=== PATIENT | female | born 1970 | race Caucasian/White ===

== ENCOUNTER 2018-11-13 11:17 | Emergency (ER) ==
[2018-11-13 11:24] VITALS: BP 129/88; TEMP 98; BMI 47.9
--- NOTE | 2018-11-13 13:17 | ED.PDOC ---
General ED Provider: Dr. SUMMER BROWN Chief Complaint: Psychiatric Complaint Stated Complaint: pt stated she heared some voiced no commanding issue with these voices shestated she can hear people talking in the background not to her but voices talking amongst themselves Time Seen by Physician: 11:30 (sen with ciarra) Mode of Arrival: Walk-In Information Source: Patient Exam Limitations: No limitations Nursing and Triage Documentation Reviewed and Agree: No Does patient meet sepsis criteria?: No System Inflammatory Response Syndrome: Not Applicable Sepsis Protocol: For patient's 13 years and over: Temp is 96.8 and below OR 101 and greater Pulse >90 BPM Resp >20/minute Acutely Altered Mental Status Are patient's symptoms suggestive of a new infection, such as: -Pneumonia -Skin, Soft Tissue -Endocarditis -UTI -Bone, Joint Infection -Implantable Device -Acute Abdominal Infection -Wound Infection -Meningitis -Blood Stream Catheter Infection -Unknown Psychological Complaint Exam - Psychiatric Complaint/Exam Patient Complains Of: Present: Other (hearing voices off her meds ). Absent: Depression, Suicidal thoughts, Suicidal gestures Onset/Duration: 1 week Symptoms Are: Still present Timing: Constant Episodes Lasting: Hours Initial Severity: Mild Current Severity: Mild Character: Absent: Manic, Depressed, Fearful, Anxious, Angry, Frustrated Aggravating: Reports: Medication noncompliance Associated Signs And Symptoms: Denies: Hostile, Confused, Hallucinating, Paranoid behavior, Sleep disturbance, Appetite change Related History: Denies: Suicidal thoughts, Suicidal plan, Suicidal gestures, Homicidal thoughts, Homicidal plan, Homicidal gestures, Prior attempts, Recent stressors, Drug ingestion Completed Suicide Risk Factors: None Patient Accompanied By: Family Social Withdrawal Present: No Social Isolation Present: No Prior Suicide Attempt: No Injury From Prior Suicide Attempt: No Related Surgical History: Reports: None Patient Uncooperative For Exam: No Mood: Present: Hearing voices Appearance: Present: Clean Thought Process: Present: Logical Insight: Present: Good Memory: Intact Judgement: Normal Danger To Others: No Patient Medically Stable For: Psych evaluation Differential Diagnoses: Acute Psychosis Review of Systems - Review Of Systems Constitutional: Reports: No symptoms Eyes: Reports: No symptoms Ears, Nose, Mouth, Throat: Reports: No symptoms Respiratory: Reports: No symptoms Cardiac: Reports: No symptoms GI: Reports: No symptoms : Reports: No symptoms Musculoskeletal: Reports: No symptoms Skin: Reports: No symptoms Neurological: Reports: Other (hearning voices in a distant no suicidal , homocidal plan or ideation) Endocrine: Reports: No symptoms Hematologic/Lymphatic: Reports: No symptoms All Other Systems: Reviewed and Negative Past Medical History - Past Medical History Previously Healthy: Yes Endocrine: Reports: None Cardiovascular: Reports: None Respiratory: Reports: None Hematological: Reports: None Gastrointestinal: Reports: None Genitourinary: Reports: None Neuro/Psych: Reports: Schizophrenia Musculoskeletal: Reports: None Cancer: Reports: None Last Menstrual Period: 1 WEEK AGO - Surgical History General Surgical History: Reports: None - Family History Family History: Reports: None - Social History Smoking Status: Never smoker Hx Substance Use: No Alcohol Screening: None Physical Exam - Physical Exam Appearance: Well-appearing, No pain distress, Well-nourished Eyes: DAVID, EOMI, Conjunctiva clear ENT: Ears normal, Nose normal, Oropharynx normal Respiratory: Airway patent, Breath sounds clear, Breath sounds equal, Respirations nonlabored Cardiovascular: RRR, Pulses normal, No rub, No murmur GI/: Soft, Nontender, No masses, Bowel sounds normal, No Organomegaly Musculoskeletal: Normal strength, ROM intact, No edema, No calf tenderness Skin: Warm, Dry, Normal color Neurological: Sensation intact, Motor intact, Reflexes intact, Cranial nerves intact, Alert, Oriented Psychiatric: Affect appropriate, Mood appropriate Interpretation - Winding Lathe Operator Rate: Normal Rhythm: Sinus Ectopy: None - EKG Interpretation Rate: Normal Rhythm: Sinus Salyer: NL Re-Evaluation - Re-Evaluation Time of Re-Evaluation: 12:00 Status: Unchanged Vital Signs Stable: Yes Pain Level: 0 Appearance: NAD Lungs: Clear Skin: Warm and Dry Neuro: Alert and Oriented X3 CV: RRR - Re-Evaluation Time of Re-Evaluation: 13:19 Status: Unchanged Vital Signs Stable: Yes Pain Level: 0 Appearance: NAD Skin: Warm and Dry Neuro: Alert and Oriented X3 CV: RRR Critical Care Note - Critical Care Note Total Time (mins): 0 Course - Course Hematology/Chemistry: 11/13/18 12:08 11/13/18 12:08 Orders, Labs, Meds: Lab Review 11/13/18 11/13/18 11/13/18 11:40 11:40 12:08 WBC 11.15 H RBC 4.79 Hgb 12.7 Hct 41.3 MCV 86.2 MCH 26.5 L MCHC 30.8 L RDW Coeff of Dianne 14.6 Plt Count 302 Immature Gran % (Auto) 0.3 Neut % (Auto) 73.6 Lymph % (Auto) 19.5 [place] % (Auto) 5.4 Eos % (Auto) 0.9 Baso % (Auto) 0.3 Immature Gran # (Auto) 0.0 Neut # (Auto) 8.2 H Lymph # (Auto) 2.2 [place] # (Auto) 0.6 Eos # (Auto) 0.1 Baso # (Auto) 0.0 Sodium Potassium Chloride Carbon Dioxide Anion Gap BUN Creatinine Estimated GFR (MDRD) BUN/Creatinine Ratio Glucose Calcium Total Bilirubin AST ALT Alkaline Phosphatase Total Protein Albumin Globulin Albumin/Globulin Ratio TSH Free T4 Urine Color Dark Urine Clarity Slightly Urine pH 5.5 Ur Specific [place] 1.025 Urine Protein Trace Urine Glucose (UA) Negative Urine Ketones Negative Urine Blood Trace-intact Urine Nitrite Negative Urine Bilirubin Negative Urine Urobilinogen 0.2 Ur Leukocyte Esterase 1+ Urine Microscopic RBC 2-5 Urine Microscopic WBC 2-5 Ur Squamous Epith Cells 5-10 Urine Mucus 2+ Salicylate Level mg/dL Urine Opiates Screen Negative Ur Oxycodone Screen Negative Urine Methadone Screen Negative Ur Propoxyphene Screen Negative Acetaminophen Ur Barbiturates Screen Negative U Tricyclic Antidepress Negative Ur Phencyclidine Scrn Negative Ur Amphetamine Screen Negative U Methamphetamines Scrn Negative U Benzodiazepines Scrn Negative Urine Cocaine Screen Negative U Cannabinoids Screen Negative Plasma/Serum Alcohol 11/13/18 11/13/18 12:08 12:08 WBC RBC Hgb Hct MCV MCH MCHC RDW Coeff of Dianne Plt Count Immature Gran % (Auto) Neut % (Auto) Lymph % (Auto) [place] % (Auto) Eos % (Auto) Baso % (Auto) Immature Gran # (Auto) Neut # (Auto) Lymph # (Auto) [place] # (Auto) Eos # (Auto) Baso # (Auto) Sodium 139.5 Potassium 4.12 Chloride 106.9 Carbon Dioxide 25.2 Anion Gap 11.52 BUN 11.0 Creatinine 0.98 Estimated GFR (MDRD) 60.00 BUN/Creatinine Ratio 11.22 Glucose 89.7 Calcium 9.16 Total Bilirubin 0.41 AST 37.9 H ALT 48.1 H Alkaline Phosphatase 135.5 H Total Protein 8.44 H Albumin 4.36 Globulin 4.08 Albumin/Globulin Ratio 1.06 TSH 3.500 Free T4 1.03 Urine Color Urine Clarity Urine pH Ur Specific [place] Urine Protein Urine Glucose (UA) Urine Ketones Urine Blood Urine Nitrite Urine Bilirubin Urine Urobilinogen Ur Leukocyte Esterase Urine Microscopic RBC Urine Microscopic WBC Ur Squamous Epith Cells Urine Mucus Salicylate Level mg/dL < 1.00 Urine Opiates Screen Ur Oxycodone Screen Urine Methadone Screen Ur Propoxyphene Screen Acetaminophen < 10.0 L Ur Barbiturates Screen U Tricyclic Antidepress Ur Phencyclidine Scrn Ur Amphetamine Screen U Methamphetamines Scrn U Benzodiazepines Scrn Urine Cocaine Screen U Cannabinoids Screen Plasma/Serum Alcohol < 10.0 Orders Category Date Time Status EKG-(ED ONLY) Stat CARDIO 11/13/18 11:53 Completed Mental Health Consult [ED MENTAL HEALTH CONSULT] .ONCE EMERGENCY 11/13/18 11: 53 Active ACETAMINOPHEN Stat LAB 11/13/18 12:08 Completed BLOOD ALCOHOL Stat LAB 11/13/18 12:08 Completed CBC W/ AUTO DIFF Stat LAB 11/13/18 12:08 Completed COMPREHENSIVE METABOLIC PANEL Stat LAB 11/13/18 12:08 Completed DRUG SCREEN, URINE, RAPID Stat LAB 11/13/18 11:40 Completed FREE T4 (FREE THYROXINE) Stat LAB 11/13/18 12:08 Completed SALICYLATE Stat LAB 11/13/18 12:08 Completed THYROID STIMULATING HORMONE Stat LAB 11/13/18 12:08 Completed URINALYSIS C & S IF INDICATED Stat LAB 11/13/18 11:40 Completed URINE CULTURE Stat LAB 11/13/18 11:14 Received Vital Signs: Temp Pulse Resp BP Pulse Ox 11/13/18 11:17 98.0 F 70 20 129/88 96 Departure - Departure Time of Disposition: 13:19 Disposition: HOME SELF-CARE Discharge Problem: Hearing voices Instructions: Hallucinations (ED), Psychiatric Hallucinations (ED) Condition: Good Pt referred to PMD for follow-up: Yes IPMP verified?: No Additional Instructions: Please call your Family Physician as soon as possible to schedule a follow-up appointment. Allergies/Adverse Reactions: Allergies No Known Allergies Allergy (Unverified 11/13/18 11:23) Home Medications: Ambulatory Orders Clonazepam 1 mg PO TID 11/13/18 Sertraline HCl 1.5 tab PO DAILY 11/13/18 Disposition Discussed With: Patient, Family
== END 2018-11-13 13:24 | disposition home or self-care (01) ==
LOC: ED 11:17
DX: R44.0 Auditory hallucinations (principal); Z91.14 Patient's other noncompliance with medication regimen; F20.9 Schizophrenia, unspecified
CPT/HCPCS: 36415; 80053; 80306; 80307; 81001; 84439; 84443; 85025; 87086; 93005; 93010; 99283